=== PATIENT | male | born 1950 | race Caucasian/White ===

== ENCOUNTER 2016-10-18 12:40 | Outpatient (CLI) | payer BC ==
--- NOTE | 2016-10-18 15:18 | Diagnostic Imaging Report ---
Indication: Dyspnea Comparison: None 2 views of the chest obtained. No definite infiltrate or pulmonary vascular congestion identified. The heart is enlarged. The aorta is mildly enlarged consistent with atherosclerotic vascular disease. The bones are osteopenic. Impression: No acute disease
== END 2016-10-18 14:40 | disposition home or self-care (01) ==
LOC: RAD 12:40
DX: Z01.818 Encounter for other preprocedural examination (principal); R06.00 Dyspnea, unspecified; M85.80 Other specified disorders of bone density and structure, unspecified site; I51.7 Cardiomegaly
CPT/HCPCS: 71020